=== PATIENT | male | born 1995 | race Caucasian/White ===

== ENCOUNTER → 2018-05-29 | Outpatient (CLI) | payer OTHER ==
[~2018-05-29] MED LIST: CARAFATE 1GM1 G PO; NO HOME MEDICATIONS; NORCO 325 MG-7.1 TAB; REGLAN 10MG10 MG/TAB PO; TYLENOL 325MG325 MG PO
== END ==
LOC: COL.RAD 08:53
DX: R25.1 Tremor, unspecified (principal)
CPT/HCPCS: A9585

== ENCOUNTER 2018-10-23 02:28 | Emergency (ER) | payer OTHER ==
[~2018-10-23] VITALS: Ht 182.9 cm; Wt 79.5 kg
[2018-10-23 02:35] VITALS: BP 123/75; PULSE 79; TEMP 98.5
[2018-10-23] MEDS ORDERED: ALLEGRA-D 24HR1 T24 PO (02:41)
[2018-10-23] MEDS ORDERED: ZANAFLEX 4MG TAB4 MG PO (03:42)
== END 2018-10-23 04:19 | disposition home or self-care (01) ==
LOC: COL.ER 02:28
DX: S13.4XXA Sprain of ligaments of cervical spine, initial encounter (principal); R25.2 Cramp and spasm; X50.0XXA Overexertion from strenuous movement or load, initial encounter
CPT/HCPCS: J1885

== ENCOUNTER 2020-07-14 19:52 | Emergency (ER) | payer OTHER ==
[~2020-07-14] VITALS: Ht 182.9 cm; Wt 75.0 kg
[~2020-07-14 19:52] MED LIST changes: +ALLEGRA-D 24HR1 T24 PO; +ZANAFLEX 4MG TAB4 MG PO
[2020-07-14] MEDS ORDERED: ZYRTEC-D 5 MG-11 TER PO (20:11)
[2020-07-14 20:58] LABS: BASO % 0.2 % (0.0-2.0); EOS % 0.7 % (0-4.0); GRAN # 4.5 (1.4-6.5); GRAN % 76.6 % (42.2-75.2); HEMOGLOBIN 15.9 g/dl (13.5-18.0); LYMPH # 0.8 (1.2-3.4); LYMPH % 14.2 % (20.0-51.0); MEAN CELL VOLUME 88 fl (80.0-100.0); MEAN CORPUSCULAR HEMOGLOBIN 30 pg (27.0-31.0); MEAN CORPUSCULAR HGB CONC 35 g/dl (33.0-37.0); MEAN PLATELET VOLUME 8.8 fl (7.4-10.4); MONO # 0.5 (0.1-0.6); PLATELET COUNT 161 K/mm3 (130-400); RED BLOOD COUNT 5.24 M/mm3 (4.20-5.60); REDCELL DISTRIBUTION WIDTH-CV 11.9 % (11.5-14.5)
[2020-07-14 21:07] LABS: ALBUMIN 4.6 gm/dL (3.5-5.0); BILIRUBIN,TOTAL 0.9 mg/dL (0.0-1.0); CALCIUM 9.4 mg/dL (8.4-10.2); CREATININE, serum 0.87 (0.66-1.25); POTASSIUM 3.8 mmol/L (3.4-5.0); TOTAL PROTEIN 8.2 gm/dL (6.4-8.2)
[2020-07-14 21:31] LABS: COLLECTION METHOD CLEAN CATCH
[2020-07-14 21:38] LABS: MUCOUS Present /lpf; PH 6 (5-8); SQUAMOUS EPITHELIAL None Seen /hpf; URINE APPEARANCE Hazy; URINE BACTERIA None Seen /hpf; URINE BILIRUBIN Negative (NEGATIVE); URINE BLOOD Negative (NEGATIVE); URINE COLOR Yellow; URINE GLUCOSE Negative (NEGATIVE); URINE KETONE 2+ (NEGATIVE); URINE LEUKOCYTE ESTERASE Negative (NEGATIVE); URINE NITRATE Negative (NEGATIVE); URINE PROTEIN(semi-quant) Negative (NEGATIVE); URINE RBC 0-2 /hpf; URINE UROBILINOGEN Negative (NEGATIVE)
[2020-07-14] MEDS ORDERED: ZOFRAN ODT4 MG PO (21:58)
[2020-07-14 22:05] VITALS: BP 118/78; PULSE 97; TEMP 98.2
== END 2020-07-14 22:05 | disposition home or self-care (01) ==
LOC: COL.ER 19:52
PROVIDERS: Emergency Medicine
DX: K52.9 Noninfective gastroenteritis and colitis, unspecified (principal); Z90.49 Acquired absence of other specified parts of digestive tract
CPT/HCPCS: J0500; J2405; J7120

== ENCOUNTER → 2023-10-23 | Outpatient (CLI) | payer BC ==
[~2023-10-23] MED LIST changes: +ZOFRAN ODT4 MG PO; +ZYRTEC-D 5 MG-11 TER PO
== END ==
LOC: COL.RAD 07:54
DX: M48.02 Spinal stenosis, cervical region (principal); M47.812 Spondylosis without myelopathy or radiculopathy, cervical region

== ENCOUNTER → 2023-12-09 | Outpatient (CLI) | payer BC | LOC: MHCPAIN 12:38 | DX: M54.12 Radiculopathy, cervical region (principal); M47.892 Other spondylosis, cervical region | CPT/HCPCS: G0463 ==

== ENCOUNTER → 2024-01-19 | Outpatient (CLI) | payer BC ==
[~2024-01-19] MED LIST changes: +Iohexol 300 - 10 ML VIAL ONE; +Lidocaine PF 2% (20 MG/ML) 2 ML VIAL ONE
== END ==
LOC: MHCPAIN 08:07
DX: M54.12 Radiculopathy, cervical region (principal); M54.2 Cervicalgia
CPT/HCPCS: J1100; Q9967